=== PATIENT | female | born 1985 | race Caucasian/White ===

== ENCOUNTER 2018-10-13 16:06 | Emergency (ER) | payer MEDICAID, SELFPAY ==
[2018-10-13 16:07] VITALS: BP 134/75; PULSE 114; RESP 16; TEMP 36.5; O2SAT 100; BMI 28.5
--- NOTE | 2018-10-13 17:40 | ED.VISSUMM ---
- ER Visit Summary Date of Service: 10/13/18 Chief Complaint: Back pain History of Present Illness: The patient is a 32 F who has a history of back problems. She states she started getting back spasms this afternoon. She was recently visiting her sister and was lifting her nephew and she thinks this exacerbated her chronic pain. She is taking ibuprofen and Flexeril at home. Her last dose of muscle relaxer was 4 hours ago. Patient denies pain rating to her legs. She denies bowel or bladder problems. Is also complaining of increased pain from her hiatal hernia which she states tends to flareup when her back gets worse. She denies reflux symptoms currently. Physical Examination: Vital signs unremarkable. Patient sitting upright in bed no acute distress. Head neck examination normal. Heart is regular rate and rhythm. Lungs sounds clear. Abdomen is soft with no focal tenderness. Back examination reveals reproducible tenderness in the bilateral lumbar paraspinals. Neuro exam reveals normal strength and sensation the lower extremities. She has 2+ bilateral patellar reflexes. She has equal and strong distal pulses. Test Results: Emergency Department Course and Treatment: Patient be given a GI cocktail here along with an IM dose of Norflex. She will be given a prescription for Norflex. She is advised she could use this or Flexeril for muscle spasm, but she cannot take them together. She is requesting a work note that she had to call off today. Treatment Plan: Disposition: Discharge Impression: Acute on chronic back pain This note was generated with [employer] dictation software. It may contain incorrect words, spelling, and punctuation that were not noted in review of the chart prior to signing ED Disposition - Plan for ED Patient: Referrals: Care Physician,No Primary [Primary Care Provider] -
--- NOTE | 2018-10-13 17:43 | ED.DEP ---
ED Disposition - Plan for ED Patient: Disposition: Home or Assisted Living Instructions: ED Spasm Back No Trauma Prescriptions: Orphenadrine [Norflex ER] 100 mg PO BID PRN #14 tablet PRN Reason: Spasms Referrals: Sondra Braun MD [STAFF PHYSICIAN] - As Needed
[2018-10-13] MEDS: Orphenadrine 60 MG/2 ML Ampul IM (18:11)
[2018-10-13] MEDS: Mag Hydrox/Al Hydrox/Simeth 30 ML UDC PO (18:11)
[2018-10-13 18:12] VITALS: BP 113/76; PULSE 88; RESP 18; O2SAT 99
== END 2018-10-13 18:21 | disposition home or self-care (01) ==
PROVIDERS: Emergency Provider Emergency Medicine
DX: G89.29 Other chronic pain (principal); M54.9 Dorsalgia, unspecified; R10.9 Unspecified abdominal pain; Z72.0 Tobacco use; Z86.14 Personal history of Methicillin resistant Staphylococcus aureus infection
CPT/HCPCS: 96372; 99283

== ENCOUNTER 2018-10-14 23:46 | Emergency (ER) | payer MEDICAID, SELFPAY ==
[2018-10-13 16:07] VITALS: BMI 28.5
[2018-10-14 23:48] VITALS: BP 141/80; PULSE 103; RESP 18; TEMP 36.3; O2SAT 99; BMI 28.5
[2018-10-15] MEDS: 0.9% Normal Saline 1,000 ML 1000 ML IV (01:20)
[2018-10-15] MEDS: Dicyclomine 10 MG Capsule 20 MG PO (01:20)
[2018-10-15] MEDS: Ondansetron 4 MG/2 ML Vial IV (01:20)
[2018-10-15] MEDS: Famotidine 20mg IV Push Syringe Q24 300 MG IV (01:26)
[2018-10-15 01:29] LABS: Absolute Lymphocyte Count 3.27 X10^3/ul (0.83-4.51); Absolute Neutrophil Count 6.1 X10^3/uL (2.0-7.7); Basophil# 0.07 X10^3/uL; Basophil% 0.6 % (0-1); Differential Indicated SCAN CRITERIA MET; Eosinophil# 0.55 X10^3/uL; Hematocrit 37.2 % (37-47); Hemoglobin 12.2 g/dl (12.0-15.0); Lymphocyte # 3.27 X10^3/ul (4.0); Lymphocyte % 29.7 % (19-41); Mean Corp Hgb Conc 32.8 g/gl (32-36); Mean Corpuscular Volume 94.7 fL (81-99); Mean Platelet Vol. 9.9 fl (6.2-12.0); Monocyte# 1.04 X10^3/uL; Monocyte% 9.4 % (0-10); Neutrophil # 6.05 X10^3/uL (2.7-7.7); POSITIVE COUNT NO; POSITIVE DIFFERENTIAL NO; POSITIVE MORPHOLOGY YES; Platelet Count 248 K/mm3 (150-450); RBC Distribution Width CV 13.8 % (11.6-14.6); RBC Distribution Width SD 45.5 fl (35.1-43.9); Red Blood Count 3.93 M/mm3 (4.2-5.4)
[2018-10-15 01:38] LABS: ALB/GLOB Ratio 1.3 RATIO (0.9-2.4); AST(SGOT) 57 U/L (15-37); Alanine Aminotransfer ALT/SGPT 146 U/L (13-56); Albumin, Serum 3.4 g/dL (3.2-5.0); Alkaline Phosphatase 111 U/L (45-117); Anion Gap 3 (5-15); BUN 9 mg/dL (7-18); BUN/Creat Ratio 18.6 RATIO (10-20); Calcium,Total 8.1 mg/dL (8.5-10.1); Chloride 112 mmol/L (98-107); Creatinine, Serum 0.48 mg/dL (0.55-1.02); EST Glomerular Filtration Rate 157 mL/min (>60); Est Glom Filt Rate - Afr Amer 190 mL/min (>60); Estimated Creatinine Clearance 157.52 ml/min; Globulin 2.7 g/dL (2.2-4.2); Glucose 89 mg/dL (74-106); Lipase 111 U/L (73-393); Potassium 4.1 mmol/L (3.5-5.1); Protein, Total 6.1 g/dL (6.4-8.2); Sodium Level 142 mmol/L (136-145)
--- NOTE | 2018-10-15 01:56 | CT_ITS ---
STUDY: CT ABDOMEN AND PELVIS WITH CONTRAST REASON FOR EXAM: Female, 32 years old. Abdominal pain. RADIATION DOSAGE (If Supplied By Facility): CTDIvol = ( 14.10 ) mGy, DLP = ( 843.51 ) mGycm TECHNIQUE: Transaxial images were obtained from the dome of the diaphragm to the symphysis pubis without oral contrast. Isovue 300 100 ml IV was administered. Sagittal and coronal images were reconstructed. Individualized dose optimization techniques were used for this CT. COMPARISON: CT abdomen and pelvis dated October 10, 2014. FINDINGS: The visualized lung bases are unremarkable. The visualized portions of the heart are within normal limits. Normal liver. There are surgical clips in the gallbladder fossa consistent with a prior cholecystectomy. Normal spleen. Normal pancreas. Normal bilateral adrenal glands. Normal right kidney. Normal left kidney. Normal visualized stomach. There is no evidence for dilated bowel, ascites or pneumoperitoneum. The small bowel has a grossly normal appearance. Stool visible throughout the colon with scattered diverticula. The appendix is visualized and appears normal. Normal abdominal aorta. There is venous distention of the inferior vena cava (IVC). Normal retroperitoneum. Urinary bladder is very distended. There is absence of the uterus consistent with a prior hysterectomy. There is a small periumbilical hernia containing fat. There is degenerative disc disease at L5-S1 with vacuum disc phenomenon and disc space narrowing. CT/Abdomen/Pelvis W IV Cont ONLY IMPRESSION: No CT evidence of acute intra-abdominal disease. Electronically Signed: Faye Kohler MD at 3:39 EDT , Service support ,
[2018-10-15] MEDS: Morphine 4 MG/ML Syringe IV (02:22)
--- NOTE | 2018-10-15 03:54 | ED.VISSUMM ---
- ER Visit Summary Date of Service: 10/15/18 Chief Complaint: Abdominal pain, nausea, vomiting History of Present Illness: The patient is a 32 F who presents with abdominal pain nausea vomiting diarrhea. She states it is my hiatal hernia. She states that she is having hernia pain. Her symptoms began today. She complains of sharp stabbing epigastric pain. She reports nausea vomiting and diarrhea. No fevers. No chest pain shortness of breath. Physical Examination: Heart rate 103 vitals otherwise normal Patient sleeping landed the room Heart regular rate and rhythm Lungs are clear Abdomen soft nondistended she does have some epigastric tenderness without guarding without rebound Alert Test Results: CBC BMP unremarkable. Lipase normal. Mild elevation of ALT at 146 and AST at 57. CT of the abdomen and pelvis shows no acute disease. Emergency Department Course and Treatment: Patient was initially treated with Bentyl and IV Pepcid and Zofran. She continued to complain of pain and was given morphine. Given mild elevation of transaminases I did obtain imaging which is unremarkable. We will add on Carafate. Patient understands to return for new or worsening symptoms. I advised she follow-up as an outpatient. She was given a referral for primary care physician and discharged home. Treatment Plan: [] Disposition: Discharge Impression: Epigastric abdominal pain This note was generated with [employer] dictation software. It may contain incorrect words, spelling, and punctuation that were not noted in review of the chart prior to signing ED Disposition - Plan for ED Patient: Referrals: Care Physician,No Primary [Primary Care Provider] -
--- NOTE | 2018-10-15 03:55 | ED.DEP ---
ED Disposition - Plan for ED Patient: Instructions: ED Abdominal Pain Unkn Cause Prescriptions: Sucralfate [Carafate] 1 gm PO 4X/DAY #40 tab Referrals: Care Physician,No Primary [Primary Care Provider] - Cleveland Luna DO [STAFF PHYSICIAN] -
[2018-10-15 04:12] VITALS: BP 115/63; PULSE 90; RESP 16; O2SAT 96
== END 2018-10-15 04:13 | disposition home or self-care (01) ==
PROVIDERS: Emergency Provider Emergency Medicine
DX: R10.13 Epigastric pain (principal); R11.2 Nausea with vomiting, unspecified; R19.7 Diarrhea, unspecified; K21.9 Gastro-esophageal reflux disease without esophagitis; Z72.0 Tobacco use; R74.0 Nonspecific elevation of levels of transaminase and lactic acid dehydrogenase [LDH]
CPT/HCPCS: 74177; 80053; 83690; 85025; 96361; 96374; 96375; 99283; J7030; Q9967; A4216; J2405; J3490

== ENCOUNTER 2018-12-04 17:23 | Emergency (ER) | payer MEDICAID, SELFPAY ==
[2018-12-04 17:23] VITALS: BP 122/78; PULSE 85; RESP 16; TEMP 36.7; O2SAT 98; BMI 29.5
--- NOTE | 2018-12-04 18:30 | ED.VISSUMM ---
- ER Visit Summary Date of Service: 12/04/18 Chief Complaint: [Forehead abscess] History of Present Illness: The patient is a 32 F [presents to the emergency department with complaint of an abscess to her forehead x3 weeks. Patient states that she had some leftover Bactrim that she took but did not seem to help. She denies any fever although has had some chills. Has had some intermittent headaches.] Physical Examination: [HEENT-PERRLA, EOMI. Cranial nerves II through XII grossly intact. TMs clear. Mucous membranes moist. No adenopathy. Forehead-at the hairline there is a 3 cm soft tissue swelling that is fluctuant in the center suspicious for an abscess. There is some faint erythema noted and some dry skin around it. Cardiovascular-regular rate and rhythm without murmur or ectopy Lungs-clear to auscultation, chest wall stable without crepitus or subcu emphysema Abdomen-normoactive bowel sounds, soft, nontender, no rebound or rigidity, no peritoneal signs. Extremities-intact ?4, normal range of motion, normal pulses, atraumatic] Test Results: [None indicated] Emergency Department Course and Treatment: [Incision and drainage of suspected abscess-area cleansed with Shur-Clens. Patient refused anesthesia. Using an 11 blade a 1.5 cm incision was made and large amount of purulent debris was expressed. Cavity was irrigated. Clean dressing was applied.] Treatment Plan: [Patient will be referred to general surgery for follow-up. Patient given a prescription for Keflex and Bactrim and a few [place] for severe pain.] Disposition: [Discharged home in stable condition. Patient advised to return if increasing pain, redness, swelling, or conditions worsen anyway.] Impression: [Forehead abscess with incision and drainage] This note was generated with [employer] dictation software. It may contain incorrect words, spelling, and punctuation that were not noted in review of the chart prior to signing ED Disposition - Plan for ED Patient: Referrals: Care Physician,No Primary [Primary Care Provider] -
--- NOTE | 2018-12-04 18:32 | ED.DEP ---
ED Disposition - Plan for ED Patient: Instructions: ED Abscess IandD Prescriptions: Hydrocodone Bitart/Apap 5-325 [[place] 5MG-325MG] 1 tab PO Q4H PRN PRN 2 Days #10 tab PRN Reason: Pain Cephalexin [Keflex] 500 mg PO Q6 #40 cap Smz/Tmp Ds [Bactrim Ds] 1 tab PO BID #20 tab Referrals: Care Physician,No Primary [Primary Care Provider] - Carlos Cr MD [STAFF PHYSICIAN] - 5-7 Days
[2018-12-04 19:05] VITALS: RESP 20
== END 2018-12-04 19:07 | disposition home or self-care (01) ==
PROVIDERS: Emergency Provider Emergency Medicine
DX: L02.01 Cutaneous abscess of face (principal); Z72.0 Tobacco use
CPT/HCPCS: 10060; 99282

== ENCOUNTER 2018-12-28 19:15 | Emergency (ER) | payer MEDICAID, SELFPAY ==
[2018-12-21 14:20] VITALS: BMI 29.5
[2018-12-28 19:16] VITALS: BP 134/78; PULSE 70; RESP 18; TEMP 36.6; O2SAT 95; BMI 27.3
[2018-12-28] MEDS: 0.9% Normal Saline 1,000 ML 1000 ML IV (19:56)
[2018-12-28] MEDS: Ondansetron 4 MG/2 ML Vial IV (19:56)
[2018-12-28] MEDS: Dicyclomine 20 MG/2 ML Vial IM (20:03)
[2018-12-28 20:04] LABS: Absolute Lymphocyte Count 2.34 X10^3/ul (0.83-4.51); Absolute Neutrophil Count 3.4 X10^3/uL (2.0-7.7); Basophil# 0.04 X10^3/uL; Basophil% 0.6 % (0-1); Eosinophil# 0.37 X10^3/uL; Eosinophils% 5.5 % (0-5); Hematocrit 38.6 % (37-47); Hemoglobin 12.8 g/dl (12.0-15.0); Lymphocyte # 2.34 X10^3/ul (4.0); Lymphocyte % 34.7 % (19-41); Mean Corp Hgb Conc 33.2 g/gl (32-36); Mean Corpuscular Volume 93.5 fL (81-99); Mean Platelet Vol. 10.3 fl (6.2-12.0); Monocyte# 0.55 X10^3/uL; Monocyte% 8.2 % (0-10); Neutrophil # 3.43 X10^3/uL (2.7-7.7); Neutrophil % 50.9 % (47-70); Platelet Count 315 K/mm3 (150-450); RBC Distribution Width SD 44.6 fl (35.1-43.9); Red Blood Count 4.13 M/mm3 (4.2-5.4); White Blood Count 6.7 K/mm3 (4.4-11.0)
--- NOTE | 2018-12-28 20:08 | ED.VISSUMM ---
- ER Visit Summary Date of Service: 12/28/18 Chief Complaint: Vomiting and diarrhea History of Present Illness: The patient is a 33 F who goes to the [facility]. She reports that she has vomiting and diarrhea that began 4 days ago. She is vomiting approximately 3 times per day. No blood or emesis. She is having diarrhea twice a day. She denies any blood in her stools. She does reports there are red dots. She reports that she has a sharp, stabbing diffuse abdominal pain that is 10 out of 10 at worst 9-10 currently. Is worsened by movement relieved by nothing. Patient reports he is on Bactrim and Keflex last month for an abscess. She denies sick contacts. She has not been camping out of the country. No possible bad food exposure. She does not drink well water. Patient reports that today after an episode of diarrhea that she felt as though she could feel something crawling in her rectum. She states that she was seen at the [facility] 2 days ago and they are concerned that she has parasites and she is supposed to give a stool sample for this Physical Examination: Vitals: Stable. Afebrile. General: Well-nourished and well-developed. Head: Normocephalic atraumatic. Neck: Supple, no lymphadenopathy. No JVD. Nontender. Cardiovascular: Regular rate and rhythm. No murmurs. Respiratory: No respiratory distress. Clear to auscultation bilaterally. Abdominal: Soft, mild diffuse tenderness to palpation, nondistended, normal bowel sounds. No guarding, rebound, or peritoneal signs. Back: Nontender. Extremities: Nontender, no edema. Skin: Normal color, no rash. Neurologic: Alert and oriented ?3. Cranial nerves II through XII are intact. Normal strength and sensation. Psych: Normal affect. Test Results: CBC shows eosinophils of 6. Chem-7 shows a potassium 3.4 and chloride of 108. BUN is 4 and creatinine 0.48. LFTs show total protein is 6.3, ALT of 62, and AST of 44. C. difficile is negative. Emergency Department Course and Treatment: Patient had an IV placed. She is given a liter normal saline. She was given Zofran IV and Bentyl IM. She does have a history of polysubstance abuse. She is allergic to Toradol. I do not think treating her with opiate-based medications is in her best interest. Treatment Plan: Patient will be discharged with Zofran. Instructed to follow-up with the [facility] for the results of her ova and parasites and further evaluation. Return to the emergency department for any worsening symptoms. Disposition: To home in improved and stable condition. Impression: 1. Vomiting/diarrhea. This note was generated with [employer] dictation software. It may contain incorrect words, spelling, and punctuation that were not noted in review of the chart prior to signing ED Disposition - Plan for ED Patient: Disposition: Home or Assisted Living Instructions: ED Vomiting Diarrhea Nonspecific Ad Prescriptions: Ondansetron [Zofran Odt] 4 mg PO Q8H PRN PRN #10 tablet PRN Reason: Nausea Referrals: Jade Lemon [NON-STAFF] - 1-2 Days if not improving
[2018-12-28 20:09] LABS: POSITIVE COUNT NO; POSITIVE DIFFERENTIAL NO; POSITIVE MORPHOLOGY NO
--- NOTE | 2018-12-28 20:11 | ED.DCSUM_ITS ---
- ER Visit Summary Date of Service: 12/28/18 Chief Complaint: Vomiting and diarrhea History of Present Illness: The patient is a 33 F who goes to the [facility]. She reports that she has vomiting and diarrhea that began 4 days ago. She is vomiting approximately 3 times per day. No blood or emesis. She is having diarrhea twice a day. She denies any blood in her stools. She does reports there are red dots. She reports that she has a sharp, stabbing diffuse abdominal pain that is 10 out of 10 at worst 9-10 currently. Is worsened by movement relieved by nothing. Patient reports he is on Bactrim and Keflex last month for an abscess. She denies sick contacts. She has not been camping out of the country. No possible bad food exposure. She does not drink well water. Patient reports that today after an episode of diarrhea that she felt as though she could feel something crawling in her rectum. She states that she was seen at the [facility] 2 days ago and they are concerned that she has parasites and she is supposed to give a stool sample for this Physical Examination: Vitals: Stable. Afebrile. General: Well-nourished and well-developed. Head: Normocephalic atraumatic. Neck: Supple, no lymphadenopathy. No JVD. Nontender. Cardiovascular: Regular rate and rhythm. No murmurs. Respiratory: No respiratory distress. Clear to auscultation bilaterally. Abdominal: Soft, mild diffuse tenderness to palpation, nondistended, normal bow el sounds. No guarding, rebound, or peritoneal signs. Back: Nontender. Extremities: Nontender, no edema. Skin: Normal color, no rash. Neurologic: Alert and oriented ?3. Cranial nerves II through XII are intact. Normal strength and sensation. Psych: Normal affect. Test Results: CBC shows eosinophils of 6. Chem-7 shows a potassium 3.4 and chloride of 108. BUN is 4 and creatinine 0.48. LFTs show total protein is 6.3, ALT of 62, and AST of 44. C. difficile is negative. Emergency Department Course and Treatment: Patient had an IV placed. She is given a liter normal saline. She was given Zofran IV and Bentyl IM. She does have a history of polysubstance abuse. She is allergic to Toradol. I do not think treating her with opiate-based medications is in her best interest. Treatment Plan: Patient will be discharged with Zofran. Instructed to follow-up with the [facility] for the results of her ova and parasites and further evaluation. Return to the emergency department for any worsening symptoms. Disposition: To home in improved and stable condition. Impression: 1. Vomiting/diarrhea. This note was generated with [employer] dictation software. It may contain incorrect words, spelling, and punctuation that were not noted in review of the chart prior to signing ED Disposition - Plan for ED Patient: Disposition: Home or Assisted Living Instructions: ED Vomiting Diarrhea Nonspecific Ad Prescriptions: Ondansetron [Zofran Odt] 4 mg PO Q8H PRN PRN #10 tablet PRN Reason: Nausea Referrals: Jade Lemon [NON-STAFF] - 1-2 Days if not improving
[2018-12-28 20:23] LABS: AST(SGOT) 44 U/L (15-37); Alanine Aminotransfer ALT/SGPT 62 U/L (13-56); Albumin, Serum 3.2 g/dL (3.2-5.0); Alkaline Phosphatase 83 U/L (45-117); Anion Gap 7 (5-15); BUN 4 mg/dL (7-18); BUN/Creat Ratio 8.3 RATIO (10-20); Calcium,Total 8.4 mg/dL (8.5-10.1); Chloride 108 mmol/L (98-107); Creatinine, Serum 0.48 mg/dL (0.55-1.02); EST Glomerular Filtration Rate 158 mL/min (>60); Est Glom Filt Rate - Afr Amer 192 mL/min (>60); Estimated Creatinine Clearance 156.06 ml/min; Globulin 3.1 g/dL (2.2-4.2); Glucose 90 mg/dL (74-106); Potassium 3.4 mmol/L (3.5-5.1); Protein, Total 6.3 g/dL (6.4-8.2); Sodium Level 143 mmol/L (136-145)
[2018-12-28 22:07] VITALS: BP 116/93; PULSE 84; RESP 18; O2SAT 97
== END 2018-12-28 22:08 | disposition home or self-care (01) ==
PROVIDERS: Emergency Provider Emergency Medicine
DX: R19.7 Diarrhea, unspecified (principal); R11.10 Vomiting, unspecified; R10.84 Generalized abdominal pain; F19.10 Other psychoactive substance abuse, uncomplicated; F17.210 Nicotine dependence, cigarettes, uncomplicated; Z90.49 Acquired absence of other specified parts of digestive tract; Z90.710 Acquired absence of both cervix and uterus
CPT/HCPCS: 80053; 85025; 87177; 87209; 87493; 96361; 96372; 96374; 99283; J7030; A4216; J2405

== ENCOUNTER 2019-01-07 13:31 | Emergency (ER) | payer MEDICAID, SELFPAY ==
[2019-01-07 13:32] VITALS: BP 127/90; PULSE 93; RESP 16; TEMP 36.8; O2SAT 97; BMI 27.0
--- NOTE | 2019-01-07 13:43 | CT_ITS ---
STUDY: CT ABDOMEN AND PELVIS WITHOUT CONTRAST REASON FOR EXAM: Female, 33 years old. Abdominal pain with nausea and vomiting. RADIATION DOSAGE (If Supplied By Facility): CTDIvol = ( 8.92 ) mGy, DLP = ( 452.47 ) mGycm TECHNIQUE: Transaxial images were obtained from the dome of the diaphragm to the symphysis pubis without oral contrast, and without intravenous contrast. Sagittal and coronal images were reconstructed. Individualized dose optimization techniques were used for this CT. COMPARISON: Comparison is made with prior study dated October 15, 2018. FINDINGS: Focal infiltrate and/or atelectasis in the medial aspect of the right middle lobe. The visualized portions of the heart are within normal limits. Normal liver. There are surgical clips in the gallbladder fossa consistent with a prior cholecystectomy. Normal spleen. Normal pancreas. Normal bilateral adrenal glands. Normal right kidney. Normal left kidney. Tubular radio opaque structures are seen within the gastric lumen. These may represent foreign bodies. Is also evidence of residual food particles. Clinical correlation is recommended. Normal small intestine. Normal colon. The appendix is visualized and appears normal. Normal abdominal aorta. Normal inferior vena cava. Normal retroperitoneum. Normal urinary bladder. There is absence of the uterus consistent with a prior hysterectomy. Clips from prior tubal ligation is seen. Normal abdominal wall. Normal osseous structures. CT/Abdomen/Pelvis without Cont IMPRESSION: Multiple radiopaque tubular structure seen within the stomach. Ingestion of foreign body should be ruled out. Residual food particles within the stomach. Electronically Signed: Beau Magdaleno, at 15:20 EDT , Service support ,
[2019-01-07] MEDS: proMETHazine 25 MG/ML Syringe 6.25 MG IV (14:25)
[2019-01-07] MEDS: Ketorolac 30 MG/ML Syringe IV (14:25)
[2019-01-07] MEDS: 0.9% Normal Saline 1,000 ML 1000 ML IV (14:25)
[2019-01-07 14:39] LABS: Absolute Lymphocyte Count 2.06 X10^3/ul (0.83-4.51); Absolute Neutrophil Count 7.4 X10^3/uL (2.0-7.7); Basophil# 0.02 X10^3/uL; Basophil% 0.2 % (0-1); Eosinophil# 0.27 X10^3/uL; Eosinophils% 2.5 % (0-5); Hematocrit 41.3 % (37-47); Hemoglobin 13.5 g/dl (12.0-15.0); Lymphocyte # 2.06 X10^3/ul (4.0); Lymphocyte % 19.1 % (19-41); Mean Corp Hgb Conc 32.7 g/gl (32-36); Mean Corpuscular Hgb 30.5 pg (27.0-32.0); Mean Corpuscular Volume 93.2 fL (81-99); Mean Platelet Vol. 9.9 fl (6.2-12.0); Monocyte# 1.03 X10^3/uL; Monocyte% 9.6 % (0-10); Neutrophil # 7.39 X10^3/uL (2.7-7.7); Neutrophil % 68.5 % (47-70); Platelet Count 298 K/mm3 (150-450); RBC Distribution Width CV 12.9 % (11.6-14.6); RBC Distribution Width SD 43.8 fl (35.1-43.9); Red Blood Count 4.43 M/mm3 (4.2-5.4); White Blood Count 10.8 K/mm3 (4.4-11.0)
[2019-01-07 14:40] LABS: POSITIVE COUNT NO; POSITIVE DIFFERENTIAL NO; POSITIVE MORPHOLOGY NO
[2019-01-07 14:48] LABS: ALB/GLOB Ratio 1.1 RATIO (0.9-2.4); AST(SGOT) 60 U/L (15-37); Alanine Aminotransfer ALT/SGPT 84 U/L (13-56); Albumin, Serum 3.5 g/dL (3.2-5.0); Alkaline Phosphatase 80 U/L (45-117); Anion Gap 6 (5-15); BUN 7 mg/dL (7-18); BUN/Creat Ratio 15.1 RATIO (10-20); Calcium,Total 8.5 mg/dL (8.5-10.1); Chloride 105 mmol/L (98-107); Creatinine, Serum 0.46 mg/dL (0.55-1.02); EST Glomerular Filtration Rate 164 mL/min (>60); Est Glom Filt Rate - Afr Amer 199 mL/min (>60); Estimated Creatinine Clearance 162.84 ml/min; Globulin 3.1 g/dL (2.2-4.2); Glucose 67 mg/dL (74-106); Potassium 3.6 mmol/L (3.5-5.1); Protein, Total 6.6 g/dL (6.4-8.2); Sodium Level 140 mmol/L (136-145)
--- NOTE | 2019-01-07 14:57 | ED.DCSUM_ITS ---
- ER Visit Summary Date of Service: 01/07/19 Chief Complaint: Vomiting and diarrhea History of Present Illness: The patient is a 33 F who goes to the [facility]. She reports she has vomiting and diarrhea that began 3 days ago. States she is vomiting proxy 3 times per day. No blood or emesis. She is having diarrhea twice a day. No blood in her stools or black tarry stools. She reports that she has crampy, sharp diffuse abdominal pain is 10/10 at worst and 9-10 currently. Is worsened by movement relieved by remaining still. She is had chills, but no fever. She denies any dysuria frequency. Physical Examination: Vitals: Stable. Afebrile. General: Well-nourished and well-developed. Head: Normocephalic atraumatic. Neck: Supple, no lymphadenopathy. No JVD. Nontender. Cardiovascular: Regular rate and rhythm. No murmurs. Respiratory: No respiratory distress. Clear to auscultation bilaterally. Abdominal: Soft, mild diffuse tenderness to palpation, nondistended, normal bowel sounds. No guarding, rebound, or peritoneal signs. Back: Nontender. Extremities: Nontender, no edema. Skin: Normal color, no rash. Neurologic: Alert and oriented ?3. Cranial nerves II through XII are intact. Normal strength and sensation. Psych: Normal affect. Test Results: CBC is normal. Chem-7 shows a glucose of 67 creatinine 0.46. LFTs show an alk phos of 84 and ALT of 60. Clinical Impression(s) from Imaging Studies Abdomen/Pelvis CT 01/07/19 13:43 IMPRESSION: Multiple radiopaque tubular structure seen within the stomach. Ingestion of foreign body should be ruled out. Residual food particles within the stomach. Electronically Signed: Beau Magdaleno, at 15:20 EDT , Service support , Emergency Department Course and Treatment: Patient had an IV placed. She was given Toradol and Phenergan IV. I approached the patient with the results of the CAT scan. She is adamant that she did not ingest any foreign body. I discussed with her that not knowing what this foreign body is that it could potentially be something that is life-threatening. The patient was discussed with Dr. Beasley who called an endoscopy and was going to visualize the foreign body to make sure that it would not be life- threatening. When it came time to sedate the patient with propofol she became very agitated and insisted that we remove her IV and walked out of the emergency department. Disposition: Left prior to completion of treatment. Impression: 1. Foreign body in stomach. 2. Abdominal pain. This note was generated with [employer] dictation software. It may contain incorrect words, spelling, and punctuation that were not noted in review of the chart trev or to signing ED Disposition - Plan for ED Patient: Referrals: Nannette Suárez, BAGG[facility] CHECKER-C [Primary Care Provider] -
--- NOTE | 2019-01-07 16:33 | CON.PCM_ITS ---
Reason for Consult Date of Consultation: 01/07/19 History of Present Illness: The patient is a 33 year old F presents to the ER with abdominal pain patient points the left upper quadrant but also all of her abdomen. Patient states she has had it for 3 days. Currently rates at 10/10. Patient states previously was a 7?8. Patient has been to the ER multiple times for back and abdominal pain. Patient admits to nausea vomiting and diarrhea. Patient denies being around any sick contacts. Patient last ate 3 to [address] abdomen pelvis done which shows multiple foreign bodies in the stomach. Patient states she did not swallow anything. Patient states she did have EGD previously in the past in 2008 that showed her hiatal hernia. Past Medical History Past Medical History (Chronic Problems): Chronic Problems (Last Updated 12/21/18 @ 14:05 by Shantell Hurtado) Smoker (Chronic) F17.200 Medical History: Medical History (Last Updated 12/21/18 @ 14:05 by Shantell Hurtado) Chest pain R07.9 Diarrhea R19.7 Difficulty balancing R29.818 Limb weakness R29.898 Severe headache R51 Shortness of breath R06.02 Chronic neck and back pain M54.2, M54.9, G89.29 Allergies ciprofloxacin [From Cipro] Allergy (Verified 01/07/19 13:34) Rash ciprofloxacin HCl [From Cipro] Allergy (Verified 01/07/19 13:34) Rash clindamycin Adverse Reaction (Verified 01/07/19 13:34) Vomiting ketorolac tromethamine [From Toradol] Adverse Reaction (Verified 01/07/19 13:34) Vomiting latex Adverse Reaction (Verified 01/07/19 13:34) Itching naproxen Adverse Reaction (Verified 01/07/19 13:34) Vomiting Home Medications: Ambulatory Orders Medication Instructions Recorded Ondansetron [Zofran Odt] 4 mg PO Q8H PRN PRN #10 tablet 12/28/18 Pantoprazole Sodium [Protonix] 40 mg PO DAILY 01/07/19 Surgical History: cholecystectomy, - - c sections, back surgery, hysterectemy. right axilla i&d Psychiatric History: Anxiety, Depression Smoking Status: Current every day smoker Alcohol: None Drugs: - - last timed used meth was last year per pt - *Family History Maternal History Items: Diabetes, Heart Disease Paternal History Items: Diabetes, Heart Disease Review of Systems Constitutional: Reports: Anorexia. Denies: Fever HEENT: Denies: Difficulty Swallowing Cardiovascular: Denies: Chest Pain Respiratory: Denies: Cough Gastrointestinal: Reports: Abdominal Pain Genitourinary: Denies: Dysuria Skin: Denies: Jaundice Neurological: Denies: Balance problems Hematologic/ Lymphatic: Denies: Easy Bleeding - Physical Exam General: Alert, Oriented x3, Cooperative Lungs: Normal air movement Cardiovascular: Regular rate Abdomen: Soft, Non-Distended, Tender - Diffusely, voluntary guarding, no rebound Extremities: No clubbing, No cyanosis, No edema Neurological: Cranial nerves II-XII grossly intact Vital Signs Temp Pulse Resp BP Pulse Ox 98.2 F 93 16 127/90 H 97 01/07/19 13:32 01/07/19 13:32 01/07/19 13:32 01/07/19 13:32 01/07/19 13:32 Oxygen Delivery Method Room Air Weight: 167 lb 8.821 oz Body Mass Index (BMI) 27.0 Laboratory Tests Past 24 Hrs 01/07/19 01/07/19 14:15 14:15 WBC 10.8 RBC 4.43 Hgb 13.5 Hct 41.3 MCV 93.2 MCH 30.5 MCHC 32.7 RDW 12.9 RDW Differential 43.8 Plt Count 298 MPV 9.9 Immature Gran % (Auto) 0.100 Neut % (Auto) 68.5 Lymph % (Auto) 19.1 [place] % (Auto) 9.6 Eos % (Auto) 2.5 Baso % (Auto) 0.2 Absolute Neuts (auto) 7.4 Absolute Lymphs (auto) 2.06 Total Counted Not Reportable Sodium 140 Potassium 3.6 Chloride 105 Carbon Dioxide 29.0 Anion Gap 6 BUN 7 Creatinine 0.46 L Estim Creat Clear Calc 162.84 Est GFR (MDRD) Af Amer 199 Est GFR (MDRD) Non-Af 164 BUN/Creatinine Ratio 15.1 Glucose 67 L Calcium 8.5 Total Bilirubin 0.20 AST 60 H ALT 84 H Alkaline Phosphatase 80 Total Protein 6.6 Albumin 3.5 Globulin 3.1 Albumin/Globulin Ratio 1.1 Assessment/Plan All Active Problems (Last Updated 12/21/18 @ 14:05 by Shantell Hurtado) Open wound of right cheek (Acute) Cellulitis of right external cheek (Acute) Abscess of right external cheek (Acute) MRSA (methicillin resistant Staphylococcus aureus) infection (Acute) Hypokalemia (Acute) Cellulitis (Acute) Paresthesia (Acute) 33-year-old female with abdominal pain and possible foreign body in stomach. I have discussed the above with the patient. I have offered the patient EGD for evaluation and possible removal of foreign body.. I have explained the risks/benefits of the procedure and described the procedure. I have discussed the risks with the patient, including but not limited to: infection, bleeding, perforation of the GI tract requiring emergency surgery due to the scope or possible foreign body--may require transfer to tertiary care facility, inability to complete the procedure, injury to any internal organs, complications of anesthesia, etc. - the patient understands and agrees to proceed. I have answered all the patient's questions to the patient's satisfaction and the patient has no further questions. Did review the CT abdomen pelvis with the patient she states she did not swallow any foreign objects. Addendum: Patient's left AMA prior to having the procedure done. Cheyanne Beasley M.D. Pager: [phone] [facility] [address] [place] [address], [address] [place] [address] Office: [phone] Code Visit Office Visits / Consults: [id number] OP Consult L2
--- NOTE | 2019-01-07 16:49 | ED.RN ---
PT STARTED TO SCREAM AND CURSE AT ED MD WHEN ASKED IF SHE HAD SWALLOWED ANY FOREIGN OBJECTS. PT ATTEMPTED TO LEAVE ROOM, INSTRUCTED SHE NEEDED IV REMOVED FIRST. PT SCREAMED AT THIS RN TO REMOVE IV. CONTINUED YELLING THAT SHE WOULD HURT ED MD, I DON'T CARE IF I GO TO SNF. THIS RN REMOVED IV, PT LEFT ED DEPT STILL IN HOSPITAL GOWN. MULTIPLE ATTEMPTS BY ED MD, SURGEON, FOOT CASTER TO REDIRECT AND REASSURE PT, EXPLAINED NEED FOR PROCEDURE. SEVERAL ATTEMPTS MADE TO DE-ESCALATE SITUATION UNSUCCESSFULLY.
== END 2019-01-07 16:49 | disposition left against medical advice (07) ==
PROVIDERS: Emergency Provider Emergency Medicine; Family Provider Nurse Practitioner Family; PCP Nurse Practitioner Family
DX: T18.2XXA Foreign body in stomach, initial encounter (principal); R10.9 Unspecified abdominal pain; X58.XXXA Exposure to other specified factors, initial encounter; Y93.9 Activity, unspecified; Y92.9 Unspecified place or not applicable; R19.7 Diarrhea, unspecified; Z53.21 Procedure and treatment not carried out due to patient leaving prior to being seen by health care provider; F17.200 Nicotine dependence, unspecified, uncomplicated
CPT/HCPCS: 74176; 80053; 85025; 96361; 96374; 96375; 99282; J7030; A4216

== ENCOUNTER 2019-01-08 14:38 | Emergency (ER) | payer MEDICAID, SELFPAY ==
[2019-01-07 13:32] VITALS: BMI 27.0
[2019-01-08 14:40] VITALS: BP 138/86; PULSE 108; RESP 16; TEMP 36.3; BMI 27.9
--- NOTE | 2019-01-08 15:07 | ED.DCSUM_ITS ---
History of Present Illness Chief Complaint: Abd Pain Informant: Patient Onset: Days - Onset 4 days ago Context: Sudden Onset Timing: Continuous, Waxes and wanes Quality: N/V and diarrhea sharp pain Location: Left lower quadrant Current Severity: Mild Maximum Severity: Severe Worsened by: Nothing, which is different than documentation from [facility] Relieved by: Nothing Associated Symptoms: Nausea, vomiting diarrhea Narrative: Patient is a 33-year-old woman who reports nausea, vomiting diarrhea for the past 4 days. She was seen yesterday. There was concern for tubular structure on CT the represent foreign body. Patient was consented for EGD. Prior to sedation she demanded removal of IV and left. She presents today with left lower quadrant sharp abdominal pain associated with 5 episodes of vomiting which is more than documentation that accompanied her from [facility] and diarrhea 7 times since midnight which is higher than what she informed clinician at [facility]. She denies hematemesis, melena hematochezia. She denies fever but did complain of chills. She denies urologic symptoms. She complains of thirst and dry mouth. She denies orthostatic symptoms today. She states she had orthostatic symptoms yesterday. Prior similar symptoms: Yes Recent Illness/Hospitalization: Yes - Past Medical History (1) MRSA (methicillin resistant Staphylococcus aureus) infection Status: Acute Comment: A49.02 Past Medical History - Allergies and Home Meds Allergies/Adverse Reactions: Allergies ciprofloxacin [From Cipro] Allergy (Verified 01/08/19 14:56) Rash ciprofloxacin HCl [From Cipro] Allergy (Verified 01/08/19 14:56) Rash clindamycin Adverse Reaction (Verified 01/08/19 14:56) Vomiting ketorolac tromethamine [From Toradol] Adverse Reaction (Verified 01/07/19 13:34) Vomiting latex Adverse Reaction (Verified 01/08/19 14:56) Itching naproxen Adverse Reaction (Verified 01/08/19 14:56) Vomiting Primary Care Physician: Nannette Suárez NP-C [Primary Care Provider] - Prior records reviewed: Yes Surgical History: cholecystectomy, - - c sections, back surgery, hysterectemy. right axilla i&d Lives: Spouse/ Significant Other Smoking Status: Current every day smoker Alcohol: Occasional Drugs: - - History of opiate abuse - Family History Maternal Family History: Reports: Diabetes, Heart Disease Paternal Family History: Reports: Diabetes, Heart Disease Review of Systems General: Reports: Chills. Denies: Fever, Malaise, Subjective, Sweats, Weight loss, - Eyes: Denies: Visual changes - bilaterally, Blurred Vision - bilaterally ENT: Denies: Bilateral ear pain, Rhinorrhea, Sore throat Cardiovascular: Denies: Chest pain, Heart racing Respiratory: Denies: Dyspnea, Cough, Dyspnea on exertion Gastrointestinal: Reports: Abdominal pain, Nausea, Vomiting, Diarrhea. Denies: Constipation, Melena, Hematochezia Genitourinary: Denies: Dysuria, Hematuria, Frequency Musculoskeletal: Denies: Myalgias, Arthralgias, Neck pain, Back pain, Swelling, Extremity Pain Skin: Denies: Rash, Wounds Neurological: Denies: Headache - 8931, Weakness, Numbness Psych: Denies: Depression, Anxiety, Suicidal thoughts, Suicidal ideations, -, - Hematologic: Denies: Easy bruising, Easy bleeding, Lymphadenopathy, -, - Allergy: Denies: Uticaria, Swelling of the mouth, Swelling of the tongue, -, - Physical Exam Vital Signs/Narrative: Vital Signs Temp Pulse Resp BP 01/08/19 14:40 97.3 F L 108 H 16 138/86 H Inital Vital Signs reviewed: Yes General: Well nourished, Well developed, No Acute Distress Head: Normocephalic, Atraumatic Eyes: Perrl, EOMI. Negative for: Pale conjunctiva, Scleral icterus ENT: No rhinorrhea, TM's clear, Dry mucous membranes. Negative for: Nasal congestion, Sinus tenderness Neck: Supple, Nontender, No lymphadenopathy, No JVD Cardiovascular: Regular rhythm, No murmurs, Normal S1, Normal S2, Tachycardia Respiratory: No distress, CTA bilaterally, Chest nontender Abdomen: Soft, Nontender, Nondistended, Normal bowel sounds - Abdomen is slightly tympanitic to percussion.. Negative for: Ventral hernia, Inguinal hernia, Umbilical hernia Rectal: Deferred Back: Nontender, Normal Inspection Extremities: Nontender, No edema Skin: Normal color, No rash Neurological: Alert, Oriented x3, Cranial nerves II-XII grossly intact, Normal Strength, Normal Sensation Psychological: Normal affect, Normal Mood Diagnostic/Tx/Re-eval Chest X-Ray - ED: Read by ED Physician, - - Three-view abdominal series reveals no ossific gas pattern with significant amount of fecal stasis ascending colon splenic flexure and there are clips noted status post cholecystectomy and tubal ligation. There is no evidence of obstruction. There is no evidence of foreign body. Impressions Acute Abdomen Series 01/08/19 15:30 IMPRESSION: Large amount of fecal material is seen in the colon. Residual fluid within the stomach. Electronically Signed: Beau Magdaleno, at 15:44 EDT , Service support , 01/08/19 15:30 Acute Abdomen Inc Chest [RAD] Stat Laboratory Results 01/08/19 01/08/19 15:12 15:12 WBC 7.6 RBC 4.28 Hgb 13.2 Hct 40.1 MCV 93.7 MCH 30.8 MCHC 32.9 RDW 13.0 RDW Differential 44.3 H Plt Count 297 MPV 9.8 Immature Gran % (Auto) 0.100 Neut % (Auto) 51.8 Lymph % (Auto) 32.5 [place] % (Auto) 10.9 H Eos % (Auto) 4.2 Baso % (Auto) 0.5 Absolute Neuts (auto) 3.9 Absolute Lymphs (auto) 2.47 Total Counted Not Reportable Sodium 142 Potassium 3.5 Chloride 106 Carbon Dioxide 29.0 Anion Gap 7 BUN 4 L Creatinine 0.50 L Estim Creat Clear Calc 144.00 Est GFR (MDRD) Af Amer 184 Est GFR (MDRD) Non-Af 152 BUN/Creatinine Ratio 8.0 L Glucose 73 L Calcium 8.7 - Medical Decision Making Abdominal series was obtained to evaluate for possible foreign body and to evaluate for obstruction. IV was established. She received IV fluids, IV Zofran and p.o. Bentyl. Will obtain electric panel and compared to yesterday's results in light of reported no p.o. intake in 24 hours. Since there is no evidence of obstruction or foreign body and significant amount of fecal stasis will discharge with appropriate home-going instructions. ED Disposition - Plan for ED Patient: Disposition: Home or Assisted Living Diagnosis: Abdominal pain, vomiting, and diarrhea Instructions: ABDOMINAL PAIN, Unknown Cause, (Female) Prescriptions: Dicyclomine HCl [Bentyl] 20 mg PO TIDAC #10 cap Transmission Status: Pending to [facility]30 Ondansetron [Zofran Odt] 4 mg PO Q8H PRN PRN #5 tab PRN Reason: Nausea Transmission Status: Pending to [facility] Referrals: Nannette Suárez, MONEY EXAMINER-C [Primary Care Provider] - 3-5 Days if not improving Additional Instructions: Your prescriptions were electronically transmitted to [facility].
[2019-01-08 15:20] LABS: Absolute Lymphocyte Count 2.47 X10^3/ul (0.83-4.51); Absolute Neutrophil Count 3.9 X10^3/uL (2.0-7.7); Basophil# 0.04 X10^3/uL; Basophil% 0.5 % (0-1); Eosinophil# 0.32 X10^3/uL; Eosinophils% 4.2 % (0-5); Hematocrit 40.1 % (37-47); Hemoglobin 13.2 g/dl (12.0-15.0); Lymphocyte # 2.47 X10^3/ul (4.0); Lymphocyte % 32.5 % (19-41); Mean Corp Hgb Conc 32.9 g/gl (32-36); Mean Corpuscular Hgb 30.8 pg (27.0-32.0); Mean Corpuscular Volume 93.7 fL (81-99); Mean Platelet Vol. 9.8 fl (6.2-12.0); Monocyte# 0.83 X10^3/uL; Monocyte% 10.9 % (0-10); Neutrophil # 3.93 X10^3/uL (2.7-7.7); Neutrophil % 51.8 % (47-70); Platelet Count 297 K/mm3 (150-450); RBC Distribution Width SD 44.3 fl (35.1-43.9); Red Blood Count 4.28 M/mm3 (4.2-5.4); White Blood Count 7.6 K/mm3 (4.4-11.0)
[2019-01-08 15:21] LABS: POSITIVE COUNT NO; POSITIVE DIFFERENTIAL NO; POSITIVE MORPHOLOGY NO
--- NOTE | 2019-01-08 15:30 | RAD_ITS ---
STUDY: X-RAY - ACUTE ABDOMINAL SERIES REASON FOR EXAM: Female, 33 years old. Nausea and vomiting. TECHNIQUE: Single view of the chest. Supine, and erect view(s) of the abdomen were obtained. COMPARISON: None. FINDINGS: The lungs are clear and expanded. Normal size heart. Normal mediastinum and apolinar. Normal visualized pulmonary arteries. Normal visualized aortic arch and descending thoracic aorta. Residual fluid particles within the stomach. No radiopaque foreign bodies are seen. The patient is status post cholecystectomy. There is an abundance of fecal material throughout the colon. The soft tissue structures of the abdomen and pelvis are unremarkable. Tubal ligation clips are seen in the pelvis. Mild levoscoliosis. RAD/Acute Abdomen Inc Chest IMPRESSION: Large amount of fecal material is seen in the colon. Residual fluid within the stomach. Electronically Signed: Beau Magdaleno, at 15:44 EDT , Service support ,
[2019-01-08 15:33] LABS: Anion Gap 7 (5-15); BUN 4 mg/dL (7-18); Calcium,Total 8.7 mg/dL (8.5-10.1); Chloride 106 mmol/L (98-107); EST Glomerular Filtration Rate 152 mL/min (>60); Est Glom Filt Rate - Afr Amer 184 mL/min (>60); Glucose 73 mg/dL (74-106); Potassium 3.5 mmol/L (3.5-5.1); Sodium Level 142 mmol/L (136-145)
[2019-01-08] MEDS: Dicyclomine 10 MG Capsule 20 MG PO (15:38)
[2019-01-08] MEDS: Ondansetron 4 MG/2 ML Vial IV (15:38)
[2019-01-08 16:02] VITALS: RESP 16
--- NOTE | 2019-01-08 16:03 | ED.RN ---
IV DC'ED, CATHETER INTACT, SMALL GAUZE DRESSING PLACED. DISCHARGE INSTRUCTIONS GIVEN TO AND REVIEWED WITH PATIENT, PATIENT DENIES QUESTIONS OR CONCERNS AND VOICES UNDERSTANDING OF DISCHARGE INSTRUCTIONS. PT AMBULATES OUT OF ROOM WITHOUT DIFFICULTY.
== END 2019-01-08 16:04 | disposition home or self-care (01) ==
PROVIDERS: Emergency Provider Emergency Medicine; Family Provider Nurse Practitioner Family; PCP Nurse Practitioner Family
DX: R10.32 Left lower quadrant pain (principal); R11.2 Nausea with vomiting, unspecified; R19.7 Diarrhea, unspecified; R68.83 Chills (without fever); Z86.14 Personal history of Methicillin resistant Staphylococcus aureus infection; Z90.49 Acquired absence of other specified parts of digestive tract; F17.200 Nicotine dependence, unspecified, uncomplicated
CPT/HCPCS: 74022; 80048; 85025; 96374; 99284; A4216; J2405

== ENCOUNTER 2019-01-22 16:34 | Emergency (ER) | payer MEDICAID, SELFPAY ==
[2019-01-22 16:35] VITALS: BP 116/82; PULSE 102; RESP 16; TEMP 37.1; O2SAT 100; BMI 23.6
--- NOTE | 2019-01-22 16:43 | ED.DCSUM_ITS ---
- ER Visit Summary Date of Service: 01/22/19 Chief Complaint: The patient signed into the emergency department and apparently decided that she did not want to be seen after being placed into the room. She told the nursing staff that she was just sleeping. She reportedly denied suicidal thoughts and wanted to leave and did not want to be seen. I was dealing with a critical patient and was unable to speak with her directly in the room. She eloped from the emergency department prior to my eval. History of Present Illness: Physical Examination: Test Results: Emergency Department Course and Treatment: Treatment Plan: Disposition: Impression: Eloped from the emergency department prior to my eval This note was generated with [employer] dictation software. It may contain incorrect words, spelling, and punctuation that were not noted in review of the chart prior to signing ED Disposition - Plan for ED Patient: Referrals: Nannette Suárez, ELECTRICIAN SUPERVISOR SUBSTATION-C [Primary Care Provider] -
--- NOTE | 2019-01-22 16:44 | ED.RN ---
pt doesnt want to be seen. pt states that she was sleeping. rosla[facility] juan [facility]
== END 2019-01-22 17:04 ==
LOC: ED 16:47
PROVIDERS: Emergency Provider Emergency Medicine; Family Provider Nurse Practitioner Family; PCP Nurse Practitioner Family
DX: R40.4 Transient alteration of awareness (principal)
CPT/HCPCS: 99283

== ENCOUNTER 2019-01-30 22:33 | Emergency (ER) | payer MEDICAID, SELFPAY ==
[2019-01-30 22:33] VITALS: BP 124/85; PULSE 100; RESP 18; TEMP 36.5; O2SAT 98; BMI 26.6
--- NOTE | 2019-01-30 22:58 | ED.VIS.GEN ---
History of Present Illness Chief Complaint: Abscess Detail of Chief Complaint: Abscesses left axilla Informant: Patient Onset: Yesterday Current Severity: Mild Maximum Severity: Mild Narrative: Patient has history of abscesses with MRSA. She had multiple small abscesses to the left axilla yesterday. She has some mild pain rating toward her left breast. She has not had fever or chills. There is been no spontaneous drainage. - Past Medical History (1) Cellulitis Status: Acute (2) MRSA (methicillin resistant Staphylococcus aureus) infection Status: Acute Comment: A49.02 Past Medical History - Allergies and Home Meds Allergies/Adverse Reactions: Allergies ciprofloxacin [From Cipro] Allergy (Verified 01/30/19 22:35) Rash ciprofloxacin HCl [From Cipro] Allergy (Verified 01/30/19 22:35) Rash clindamycin Adverse Reaction (Verified 01/30/19 22:35) Vomiting latex Adverse Reaction (Verified 01/30/19 22:35) Itching naproxen Adverse Reaction (Verified 01/30/19 22:35) Vomiting Primary Care Physician: Nannette Suárez NP-C [Primary Care Provider] - Prior records reviewed: Yes Past Medical History: - Surgical History: cholecystectomy, - - c sections, back surgery, hysterectemy. right axilla i&d Smoking Status: Current every day smoker - Family History Maternal Family History: Reports: Diabetes, Heart Disease Paternal Family History: Reports: Diabetes, Heart Disease Review of Systems General: Denies: Chills, Fever Cardiovascular: Denies: Chest pain, Palpitations Respiratory: Denies: Dyspnea, Cough Gastrointestinal: Denies: Abdominal pain Skin: Reports: Abscess Physical Exam Vital Signs/Narrative: Vital Signs Temp Pulse Resp BP Pulse Ox 01/30/19 22:33 97.7 F L 100 18 124/85 H 98 General: Well nourished, Well developed ENT: Moist mucous membranes Cardiovascular: Regular rate, Regular rhythm Respiratory: No distress, CTA bilaterally Abdomen: Soft, Nontender Skin: - - There are approximately 4 small cutaneous abscesses noted in the left axilla. The largest measures 1/2 cm in diameter. There is no fluctuance to the area. No surrounding cellulitis. Neurological: Alert, Oriented x3 Psychological: Normal affect Diagnostic/Tx/Re-eval - Medical Decision Making Patient presents with multiple small cutaneous abscesses. There is nothing amenable to drainage at this time. She will be treated with Bactrim and Keflex and instructed to use warm compresses. She was advised that they may require drainage at some point. She voices understanding and agreement. ED Disposition - Plan for ED Patient: Disposition: Home or Assisted Living Instructions: ABSCESS, Antiobiotic Treatment Only Prescriptions: Smz/Tmp Ds [Bactrim Ds] 1 tablet PO BID #20 tablet Cephalexin [Keflex] 500 mg PO Q6 #40 capsule Referrals: Nannette Suárez, OPERATIONAL COMMUNICATION CHIEF-C [Primary Care Provider] - 1 Week
[2019-01-30] MEDS: Cephalexin 250 MG Capsule 500 MG PO (23:06)
[2019-01-30] MEDS: Smz/Tmp Ds Tablet 1 TABLET PO (23:06)
[2019-01-30 23:08] VITALS: BP 120/89; PULSE 91; RESP 16; O2SAT 98
== END 2019-01-30 23:08 | disposition home or self-care (01) ==
LOC: ED 23:06
PROVIDERS: Emergency Provider Emergency Medicine; Family Provider Nurse Practitioner Family; PCP Nurse Practitioner Family
DX: L02.412 Cutaneous abscess of left axilla (principal); F17.200 Nicotine dependence, unspecified, uncomplicated; Z90.49 Acquired absence of other specified parts of digestive tract; Z88.1 Allergy status to other antibiotic agents; Z86.14 Personal history of Methicillin resistant Staphylococcus aureus infection
CPT/HCPCS: 99283

== ENCOUNTER 2019-01-31 12:22 | Emergency (ER) | payer MEDICAID, SELFPAY ==
[2019-01-30 22:33] VITALS: BMI 26.6
[2019-01-31 12:22] VITALS: BP 135/73; PULSE 99; RESP 18; TEMP 36.9; O2SAT 96; BMI 27.2
--- NOTE | 2019-01-31 12:44 | ED.VISSUMM ---
- ER Visit Summary Date of Service: 01/31/19 Chief Complaint: Abscess History of Present Illness: The patient is a 33 F with a left axillary abscess. Patient was seen last night but has continued pain. She did not fill her prescriptions. She is requesting something for pain. Physical Examination: Patient has a 1 cm x 3 cm area of induration in her left axilla. Otherwise exam unremarkable. Test Results: Not indicated Emergency Department Course and Treatment: Patient does not want incision and drainage. She was requesting something for pain and nausea. She took her prescription to the pharmacy, but there is delay in filling it. Patient was given a dose of her antibiotics. She is not currently on any controlled substances. She was given a short course of pain medicine as well as Zofran. She will follow-up with her doctor. If she does want incision and drainage, or if anything worsens, she will return, otherwise follow-up with her doctor. Treatment Plan: As above Disposition: Discharged Impression: Left axillary abscess This note was generated with [employer] dictation software. It may contain incorrect words, spelling, and punctuation that were not noted in review of the chart prior to signing ED Disposition - Plan for ED Patient: Referrals: Nannette Suárez NP-C [Primary Care Provider] -
--- NOTE | 2019-01-31 12:52 | ED.DEP ---
ED Disposition - Plan for ED Patient: Instructions: ABSCESS, Antiobiotic Treatment Only Prescriptions: Hydrocodone Bitart/Apap 5-325 [Udall 5MG-325MG] 1 tab PO Q6H PRN PRN 3 Days #10 tab PRN Reason: Pain Prescription Printed Ondansetron [Zofran Odt] 4 mg PO Q8H PRN PRN #10 tab PRN Reason: Nausea Prescription Printed Referrals: Nannette Suárez, BEHAVIORAL MEDICAL DIRECTOR-C [Primary Care Provider] -
[2019-01-31] MEDS: HYDROcodone Bitartrate/Apap 5/325 Tablet PO (13:20)
[2019-01-31] MEDS: Cephalexin 250 MG Capsule 500 MG PO (13:20)
[2019-01-31] MEDS: Smz/Tmp Ds Tablet 1 TABLET PO (13:20)
[2019-01-31] MEDS: Ondansetron ODT 4 MG Tablet PO (13:21)
== END 2019-01-31 13:25 | disposition home or self-care (01) ==
LOC: ED 13:06
PROVIDERS: Emergency Provider Emergency Medicine; Family Provider Nurse Practitioner Family; PCP Nurse Practitioner Family
DX: L02.412 Cutaneous abscess of left axilla (principal)
CPT/HCPCS: 99283